=== PATIENT | female | born 1960 | race Caucasian/White ===

== ENCOUNTER 2022-07-08 22:57 | Emergency (ER) | payer OTHER, SELFPAY ==
[2022-07-08 22:58] VITALS: BP 150/95; PULSE 76; RESP 18; TEMP 35.8; O2SAT 99; BMI 33.9
--- NOTE | 2022-07-08 23:43 | CT_ITS ---
STUDY: CT BRAIN WITHOUT CONTRAST REASON FOR EXAM: Female, 62 years old patient with closed head injury after fall. RADIATION DOSAGE (If Supplied By Facility): CTDIvol = ( 44.99 ) mGy, DLP = ( 829.85 ) mGycm TECHNIQUE: Transaxial CT imaging of the brain was performed without administration of intravenous contrast material. Multiplanar reformations are submitted for interpretation. Individualized dose optimization techniques were used for this CT. COMPARISON: No relevant priors. FINDINGS: There is a soft tissue laceration involving the anterior left paramedian forehead and frontal scalp probably associated with a contusion. Normal calvarium. Normal size ventricles and extra-axial spaces for the patient''s age. Normal white matter tracts of the cerebral hemispheres. Normal basal ganglia and thalami. Normal brainstem. Normal cerebellum. There is no intracranial hemorrhage. There is minimal atherosclerotic calcification of the intracranial arteries. There is some bubbly fluid in the maxillary sinus suggesting possible acute disease. There is mucosal thickening in the left maxillary sinus as well as ethmoid sinuses. CT/Brain/Head without Contrast IMPRESSION: 1. No CT evidence of acute intracranial hemorrhage. 2. Large left anterior paramedian forehead and frontal scalp laceration and contusion. 3. Bilateral maxillary sinus disease. Electronically Signed: Mayra Moses MD at 0:20 EDT ,
[2022-07-09] MEDS: Lidocaine 1% /Epi 1:100 (20ml) 20 ML Vial INFILT (01:03)
--- NOTE | 2022-07-09 02:01 | EDS_ITS ---
HPI History of Present Illness Chief Complaint: Head Injury Informant: patient and spouse/S.O. Onset/Context/Timing Onset: Today Narrative Narrative: Today is the patient's 62th birthday so she was out drinking with friends, afterwards she stumbled out of a bar lost her balance and fell into a metal aluminum fence, hitting it with her face very hard sustaining a laceration. There was no loss of consciousness. She denies having a headache or nausea/vomiting or any focal neurologic symptoms. She has been able to walk since then. Tetanus Immunization: <5 years PFSH PFSH Medical History no medical history no medical history Allergy/AdvReac Type Severity Reaction Status Date / Time No Known Allergies Allergy Verified 07/08/22 22:58 Social History (Updated 07/09/22 @ 02:[address] Sandro Obrien MD) Smoking Status: Unknown if ever smoked alcohol intake: current alcohol intake frequency: holidays/special occasions only ROS ROS ED Eyes Eyes: Denies blurry vision or change in vision ENT ENT ED: Reports as per HPI and facial pain; Denies ear pain or sore throat Cardiovascular Cardiovascular: Denies chest pain Respiratory/Chest Respiratory/Chest: Denies dyspnea Gastrointestinal Gastrointestinal: Denies nausea or vomiting Musculoskeletal Musculoskeletal: Denies back pain, extremity pain or neck pain Integumentary Reports laceration Neurologic Neurologic: Denies headache(s), paresthesias or weakness EXAM Physical Exam Const Vital Signs: 07/08/22 22:58 Temperature 96.5 F L Temperature Source Temporal Pulse Rate 76 Respiratory Rate 18 Blood Pressure 150/95 H Blood Pressure Mean 113 Pulse Ox 99 Oxygen Delivery Method Room Air Positive well nourished and well developed General Appearance ED: well developed and NAD HEENT Reports TM's clear and nasal mucous membranes and turbinates normal HEENT Narrative: No sandoval sign. Curvilinear clean appearing deep laceration frontal scalp, mostly in the hairline, but just comes out of it left upper forehead. Down to [place]. No palpable skull fracture or crepitance/depression. No other signs of HEENT trauma. Face and Sinus: Negative for facial tenderness Tympanic Membrane ED: Yes TM's clear Eyes PERRL and EOMs intact bilaterally Visual Acuity: other Other Details: no entrapment or pain with extraocular movements Neck full ROM and supple General: Negative for tenderness Chest Wall inspection of chest normal and palpation of chest normal Chest: symmetrical chest wall rise; Negative for crepitus or tenderness Resp normal respiratory effort and clear to auscultation bilaterally Percussion: other equal BS bilat Cardio no murmurs Rate: regular rate Rhythm: regular rhythm GI normal to inspection, nondistended, normoactive bowel sounds, soft to palpation and non-tender Back/Spine normal ROM Cervical Spine: Negative for cervical spine tenderness Thoracic Spine / Upper Back: Negative for thoracic spinal tenderness Lumbar Spine / Lower Back: Negative for lumbar spinal tenderness Extremity normal to inspection and full ROM General Extremety ED: Negative for tenderness Neuro oriented x3, CN's II-XII intact bilaterally, moves all extremities, no focal motor deficits and no sensory deficits noted Neuro Narrative: Pleasantly intoxicated Cleve Coma Scale: document GCS findings Spontaneous Obeys Commands Oriented 15 Sensorium / Orientation: awake and alert Psych mental status grossly normal and thought process normal Skin Skin Narrative: 6 cm curvilinear laceration frontal scalp, deep. Lesions: no lesions Rashes: no rashes PROC Procedures Lacerations frontal scalp: Length: 6 cm Depth: Sub Q Shape: curvilinear Prep: Sterile Conditions and Chlorhexadine Laceration repair: Irrigated, Lidocaine with epi (1%, 6cc) and Local Irrigated (ml): 120 (pressure sterile saline) Number of Sutures/[place]: 8 Suture Information: - (skin ricardo) MDM MDM MDM Narrative Medical decision making narrative: Patient underwent CT scanning of the head to rule out intracranial injury, the images appear unremarkable, radiology was in agreement and I agree with their interpretation. We repaired her scalp laceration with ricardo, there were only 2 ricardo worth of the laceration that was outside of the hairline I do not think it was worth using 6-0 sutures in this part of it I discussed that with her and her significant other they were in agreement, given appropriate discharge instructions and a dressing with bacitracin. It was irrigated thoroughly I do not think she needs antibiotics. Radiography Diagnostic Testing: Clinical Impression(s) from Imaging Studies Brain CT 07/08/22 23:[address]: [address] evidence of acute intracranial hemorrhage. 2. Large left anterior paramedian forehead and frontal scalp laceration and contusion. 3. Bilateral maxillary sinus disease. Electronically Signed: Mayra Moses MD at 0:20 EDT , Discharge Plan Triage Chief Complaint: Head Injury Other Complaint: Laceration ED Provider: Sandro Obrien Dx/Rx/DC Orders Clinical Impression: Closed head injury without loss of consciousness, Laceration of scalp Instructions: ED Laceration Scalp Stitches or Ricardo Primary Care Provider: KOLTON SKELTON Referrals: KOLTON SKELTON [Other] - 5 Days for suture removal (or may go to ER or urgent care) Disposition Disposition: Home, Self Care
[2022-07-09 02:14] VITALS: BP 147/91; PULSE 62; RESP 14; O2SAT 97
== END 2022-07-09 02:15 | disposition home or self-care (01) ==
PROVIDERS: Emergency Provider Emergency Medicine; Visit Provider Emergency Medicine
DX: S01.01XA Laceration without foreign body of scalp, initial encounter (principal); S01.81XA Laceration without foreign body of other part of head, initial encounter; W17.89XA Other fall from one level to another, initial encounter
CPT/HCPCS: 12002; 70450; 99283